=== PATIENT | male | born 1980 | race Caucasian/White ===

== ENCOUNTER 2023-10-19 12:44 | Emergency (ER) | payer MEDICAID ==
[~2023-10-19] VITALS: Ht 185.4 cm; Wt 81.8 kg
[2023-10-19 14:14] LABS: BASOPHILS # (AUTO) 0.1 X10'3 (0-0.2); BASOPHILS % (AUTO) 0.8 % (0-1); EOSINOPHILS # (AUTO) 0.7 X10'3 (0-0.9); EOSINOPHILS % (AUTO) 7.2 % (0-6); HEMATOCRIT 46.2 % (42.0-52.0); LYMPHOCYTES # (AUTO) 2.7 X10'3 (1.1-4.8); LYMPHOCYTES % (AUTO) 27.4 % (21-51); MEAN CORPUSCULAR HEMOGLOBIN 30.8 PG (27.0-31.0); MEAN CORPUSCULAR HGB CONC 34.6 g/dL (33.0-36.5); MEAN CORPUSCULAR VOLUME 88.9 FL (78-98); MEAN PLATELET VOLUME 7.6 FL (7.4-10.4); MONOCYTES # (AUTO) 0.5 X10'3 (0-0.9); MONOCYTES % (AUTO) 5.2 % (2-12); NEUTROPHILS # (AUTO) 5.9 X10'3 (1.8-7.7); NEUTROPHILS % (AUTO) 59.4 % (42-75); PLATELET COUNT 245 X10'3 (140-440); RED BLOOD COUNT 5.19 X10'6 (4.70-6.10); RED CELL DISTRIBUTION WIDTH 13.8 % (11.5-14.5); WHITE BLOOD COUNT 9.9 X10'3 (4.5-11.0)
[2023-10-19 14:25] LABS: ALANINE AMINOTRANSFERASE 34 U/L (12-78); ALBUMIN 3.7 G/DL (3.4-5.0); ALBUMIN/GLOBULIN RATIO 0.9 (1.1-1.5); ALKALINE PHOSPHATASE 96 IU/L (46-116); ANION GAP 6 (8-16); BLOOD UREA NITROGEN 25 MG/DL (7-18); BUN/CREATININE RATIO 18.7 (10.0-20.0); CALCIUM 8.8 MG/DL (8.5-10.1); CHLORIDE 105 MMOL/L (99-107); CREATININE 1.34 MG/DL (0.60-1.10); LIPASE 42 U/L (16-77); SODIUM 142 MMOL/L (135-145); TOTAL CARBON DIOXIDE 31.3 MMOL/L (24-32); eCRCL 81 ML/MIN; eGFR 58 ML/MIN
[2023-10-19 14:38] LABS: ASPARTATE AMINO TRANSFERASE 24 U/L (10-37); GLUCOSE 113 MG/DL (70-104); POTASSIUM 4.1 MMOL/L (3.5-5.1)
[2023-10-19] MEDS ORDERED: normal saline 1000ml 1,000 ML IV ONE (18:45)
[2023-10-19 20:53] LABS: BILIRUBIN,URINE NEGATIVE (Neg); CLARITY,URINE CLEAR (Clear); COLOR,URINE YELLOW (Yellow); GLUCOSE, URINE NEGATIVE (Neg); KETONES,URINE NEGATIVE (Neg); LEUKOCYTE ESTERASE ,URINE NEGATIVE (Neg); NITRITES, URINE NEGATIVE (Neg); OCCULT BLOOD,URINE TRACE-INTACT (Neg); PH,URINE 5.5 (4.8-8.0); PROTEIN,URINE NEGATIVE (Neg); UROBILINOGEN,URINE 0.2 E.U/dL (0.2-1.0)
[2023-10-19 20:57] LABS: UA COLLECTION TYPE CLN CATCH MIDSTREAM
[2023-10-19 21:00] LABS: URINE AMPHETAMINE SCREEN NEGATIVE (Neg); URINE BARBITUATE SCREEN NEGATIVE (Neg); URINE BENZODIAZEPINES SCREEN NEGATIVE (Neg); URINE CANNABINOID SCREEN NEGATIVE (Neg); URINE COCAINE SCREEN NEGATIVE (Neg); URINE METHADONE SCREEN NEGATIVE (Neg); URINE OPIATE SCREEN NEGATIVE (Neg); URINE PHENCYCLIDINE SCREEN NEGATIVE (Neg)
[2023-10-19 21:02] LABS: BACTERIA,URINE FEW /HPF (Neg); MUCUS STRANDS MANY /LPF (Neg); RBC,URINE 0-2 /HPF (0-2); SQUAMOUS EPITHELIAL CELL,UR MODERATE /LPF (FEW); WBC,URINE 0-4 /HPF (0-4)
[2023-10-19 21:03] LABS: TRANSITIONAL EPI CELLS,URINE FEW /HPF
[2023-10-19 21:26] VITALS: BP 130/73; PULSE 59; RESP 16; TEMP 97.6; O2SAT 99
== END 2023-10-19 21:44 | disposition home or self-care (01) ==
LOC: ER 12:44
DX: N17.9 Acute kidney failure, unspecified (principal); K40.90 Unilateral inguinal hernia, without obstruction or gangrene, not specified as recurrent; F17.200 Nicotine dependence, unspecified, uncomplicated; Z79.899 Other long term (current) drug therapy
CPT/HCPCS: 36415; 74176; 80053; 80305; 81001; 83690; 85025; 96360; 96361; 99284; J7030

== ENCOUNTER 2024-04-14 11:32 | Emergency (ER) | payer MEDICAID ==
[~2024-04-14] VITALS: Ht 182.9 cm; Wt 81.8 kg
[2024-04-14] MEDS ORDERED: AMOX-117 PO (12:47)
[2024-04-14] MEDS ORDERED: NAPR-56 PO (12:47)
[2024-04-14 12:51] VITALS: BP 140/81; PULSE 84; RESP 15; TEMP 98.3; O2SAT 98
== END 2024-04-14 12:52 | disposition home or self-care (01) ==
LOC: ER 11:32
DX: K04.7 Periapical abscess without sinus (principal); K02.9 Dental caries, unspecified; Z79.2 Long term (current) use of antibiotics; Z79.1 Long term (current) use of non-steroidal anti-inflammatories (NSAID)
CPT/HCPCS: 99283

== ENCOUNTER 2024-08-04 07:12 | Outpatient (CLI) | payer MEDICAID ==
[~2024-08-04] VITALS: Ht 218.4 cm; Wt 83.9 kg
[2024-08-04] MEDS: albuterol 2.5 MG/3 ML nebule NEB ONE (07:46)
[2024-08-04 07:47] VITALS: PULSE 72; RESP 13; O2SAT 97
[2024-08-04 07:59] VITALS: PULSE 71; RESP 14
== END 2024-08-04 23:59 | disposition home or self-care (01) ==
LOC: RT 07:12
PROVIDERS: ATTEND Physician Assistant Medical
DX: R06.02 Shortness of breath (principal); R06.09 Other forms of dyspnea; R79.9 Abnormal finding of blood chemistry, unspecified; Z83.49 Family history of other endocrine, nutritional and metabolic diseases; Z87.891 Personal history of nicotine dependence
CPT/HCPCS: 94060; 94760